=== PATIENT | female | born 1985 | race Caucasian/White ===

== ENCOUNTER 2022-01-18 08:13 | Inpatient (IN) | payer BC ==
[~2022-01-18 08:13] MED LIST: Bupivacaine 0.25% 10 ML SDV ONE
[2022-01-18] MEDS ORDERED: Nalbuphine HCl 10 MG/ 1ML Amp IVPUSH PRN (08:20)
[2022-01-18] MEDS ORDERED: Sodium Chloride 0.9% 10 ML Syringe FLUSH PRN (08:20)
[2022-01-18] MEDS ORDERED: Methylergonovine 0.2 MG/1 ML Amp IM PRN (08:20)
[2022-01-18] MEDS ORDERED: Oxytocin/Lactated Ringers 10 UNIT/1,000 ML BAG IV SCH (08:30)
[2022-01-18] MEDS ORDERED: Lactated Ringers 1,000 ML IV SCH (08:30)
[2022-01-18] MEDS ORDERED: Sodium Chloride 0.9% 10 ML Syringe FLUSH SCH (09:00)
[2022-01-18] MEDS ORDERED: diphenhydrAMINE 50 MG/ML SDV IVPUSH PRN (09:12)
[2022-01-18] MEDS ORDERED: fentaNYL 100 MCG/2 ML SDV EPIDUR PRN (09:12)
[2022-01-18] MEDS ORDERED: Bupivacaine/fentaNYL/NS 100 ML Bag EPIDUR PRN (09:12)
[2022-01-18] MEDS ORDERED: ePHEDrine 50 MG/ML SDV IVPUSH PRN (09:12)
[2022-01-18] MEDS ORDERED: Oxytocin 10 Units/1 ML SDV IM ONE (09:20)
[2022-01-18] MEDS ORDERED: Benzocaine/Menthol 20%-0.5% Spray 78 GM Cannister TOP PRN (14:24)
[2022-01-18] MEDS ORDERED: Witch Hazel Medicated Pads 40/Jar TOP PRN (14:24)
[2022-01-20 09:52] VITALS: BP 114/78; PULSE 81
== END 2022-01-20 10:40 | disposition home or self-care (01) | DRG 560 ==
LOC: JD.OBCHECK 08:13 → JD.OB 08:15 → JD.OBCHECK 08:53 → OBSVTOIN 10:45 → JD.OB 15:15
PROVIDERS: ADMIT Obstetrics & Gynecology; ATTEND Obstetrics & Gynecology
PROC: 10E0XZZ Delivery of Products of Conception, External Approach (ICD-10-PCS; principal; 2022-01-18)
PROC: 3E0R3BZ Introduction of Anesthetic Agent into Spinal Canal, Percutaneous Approach (ICD-10-PCS; 2022-01-18)
PROC: 00HU33Z Insertion of Infusion Device into Spinal Canal, Percutaneous Approach (ICD-10-PCS; 2022-01-18)
DX: O99.52 Diseases of the respiratory system complicating childbirth (principal); J45.909 Unspecified asthma, uncomplicated; Z37.0 Single live birth; Z3A.39 39 weeks gestation of pregnancy
CPT/HCPCS: 01967; 36415; 51701; 59025; 59409; 85025; 86592; 86850; 86900; 86901; J2590; J3010; J3490; J7120

== ENCOUNTER 2023-09-28 23:24 | Inpatient (IN) | payer BC ==
[2023-09-28] MEDS ORDERED: Sodium Chloride 0.9% 10 ML Syringe FLUSH PRN (23:58)
[2023-09-28] MEDS ORDERED: Ondansetron 4 MG/2 ML SDV IVPUSH PRN (23:58)
[2023-09-28] MEDS ORDERED: Lidocaine 1% 50 ML MDV INJECT PRN (23:58)
[2023-09-28] MEDS ORDERED: Nalbuphine 10 MG/ML Syringe IVPUSH PRN (23:58)
[2023-09-29] MEDS ORDERED: Bupivacaine 0.25% 10 ML SDV ONE
[2023-09-29 00:17] LABS: BASOPHILS PERCENT AUTO 0.3 % (0.0-1.0); EOSINOPHILS ABSOLUTE AUTO 0.1 K/mm3 (0.0-0.4); HEMATOCRIT 35.1 % (37.0-47.0); HEMOGLOBIN 11.8 gm/dl (12.0-16.0); IMMATURE GRAN ABSOLUTE AUTO 0.04 K/mm3 (0.00-0.05); IMMATURE GRAN PERCENT AUTO 0.4 % (0.0-0.4); LYMPHOCYTES ABSOLUTE AUTO 2.4 K/mm3 (1.0-4.8); LYMPHOCYTES PERCENT AUTO 24.7 % (24.0-44.0); MEAN CORPUSCULAR HEMOGLOBIN 29.9 pg (28.0-32.0); MEAN CORPUSCULAR HGB CONC 33.6 g/dl (32.0-36.0); MEAN CORPUSCULAR VOLUME 88.9 fl (83.0-99.0); MEAN PLATELET VOLUME 10.4 fl (9.4-12.3); MONOCYTES ABSOLUTE AUTO 0.7 K/mm3 (0.0-0.8); MONOCYTES PERCENT AUTO 7.2 % (0.0-8.0); NEUTROPHILS ABSOLUTE AUTO 6.3 K/mm3 (1.8-7.7); NEUTROPHILS PERCENT AUTO 66.4 % (41.0-71.0); PLATELET COUNT,PLT 179 K/mm3 (150-400); RED BLOOD CELL COUNT 3.95 M/mm3 (4.10-5.30); WHITE BLOOD CELL COUNT,WBC 9.55 K/mm3 (3.9-11.3)
[2023-09-29] MEDS ORDERED: Bupivacaine/fentaNYL/NS 100 ML Bag EPIDUR PRN (00:26)
[2023-09-29] MEDS ORDERED: fentaNYL 100 MCG/2 ML SDV EPIDUR PRN (00:26)
[2023-09-29] MEDS ORDERED: ePHEDrine 50 MG/ML SDV IVPUSH PRN (00:26)
[2023-09-29] MEDS ORDERED: diphenhydrAMINE 50 MG/ML SDV IVPUSH PRN (00:26)
[2023-09-29 00:50] LABS: A/G RATIO 0.8 (1-2); ALBUMIN 2.9 g/dl (3.4-5.0); ANION GAP 14.5 (5-15); BILIRUBIN TOTAL 0.6 mg/dL (0.2-1.0); CALCIUM 8.5 mg/dL (8.5-10.1); CREATININE 0.6 mg/dL (0.55-1.02); EST CRCL DRUG DOSING (CG) 130.76 mL/min; POTASSIUM,K 3.5 mEq/L (3.5-5.1); PROTEIN TOTAL,TP 6.6 g/dl (6.4-8.2)
[2023-09-29] MEDS: Lactated Ringers 1,000 ML IV SCH (00:52)
[2023-09-29] MEDS: Oxytocin/Lactated Ringers 30 UNIT/500 ML BAG IV SCH (02:08)
[2023-09-29] MEDS ORDERED: Acetaminophen 325 MG Tab PO PRN (02:29)
[2023-09-29] MEDS ORDERED: Docusate Sodium 100 MG Cap PO PRN (02:29)
[2023-09-29] MEDS: Witch Hazel Medicated Pads 40/Jar TOP PRN (04:42)
[2023-09-29] MEDS: Benzocaine/Menthol 20%-0.5% Spray 78 GM Cannister TOP PRN (04:42)
[2023-09-29] MEDS: Ibuprofen 800 MG Tab PO SCH (04:43)
[2023-09-29] MEDS: Sodium Chloride 0.9% 10 ML Syringe FLUSH SCH (16:23)
[2023-09-30] MEDS: Measles, Mumps & Rubella Vaccine 0.5 ML SDV SUBCUT ONE (10:57)
[2023-09-30 11:16] VITALS: BP 110/75; PULSE 75
== END 2023-09-30 11:25 | disposition home or self-care (01) | DRG 560 ==
LOC: JD.OBCHECK 23:24 → JD.OB 23:30 → JD.OBCHECK 09-29 00:01 → JD.OB 09-29 02:04 → OBSVTOIN 09-29 02:04 → JD.OB 09-29 02:05
PROVIDERS: ADMIT Obstetrics & Gynecology; ATTEND Obstetrics & Gynecology
PROC: 10E0XZZ Delivery of Products of Conception, External Approach (ICD-10-PCS; principal; 2023-09-29)
PROC: 0KQM0ZZ Repair Perineum Muscle, Open Approach (ICD-10-PCS; 2023-09-29)
PROC: 3E0R3BZ Introduction of Anesthetic Agent into Spinal Canal, Percutaneous Approach (ICD-10-PCS; 2023-09-29)
PROC: 00HU33Z Insertion of Infusion Device into Spinal Canal, Percutaneous Approach (ICD-10-PCS; 2023-09-29)
PROC: 3E0234Z Introduction of Serum, Toxoid and Vaccine into Muscle, Percutaneous Approach (ICD-10-PCS; 2023-09-29)
DX: O42.02 Full-term premature rupture of membranes, onset of labor within 24 hours of rupture (principal); Z37.0 Single live birth; O70.1 Second degree perineal laceration during delivery; O69.81X0 Labor and delivery complicated by cord around neck, without compression, not applicable or unspecified; O87.8 Other venous complications in the puerperium; Z28.39 Other underimmunization status; Z23 Encounter for immunization; Z3A.38 38 weeks gestation of pregnancy; Z91.018 Allergy to other foods; Z91.02 Food additives allergy status
CPT/HCPCS: 36415; 51701; 59025; 59409; 80053; 84112; 85025; 86592; 86850; 86900; 86901; 90471; 90707; J0665; J7120; J7999